=== PATIENT | female | born 1980 ===

== ENCOUNTER 2019-03-07 09:50 | Observation (INO) | payer BC ==
[2019-03-07] MEDS ORDERED: Sodium Chloride 0.9% 2.5 ML Syringe FLUSH PRN (10:18)
[2019-03-07] MEDS ORDERED: Sodium Chloride 0.9% 10 ML Syringe FLUSH PRN (10:18)
[2019-03-07] MEDS ORDERED: Terbutaline 1 MG/ML SDV SUBCUT ONE (10:22)
[2019-03-07] MEDS ORDERED: Phenylephrine/Normal Saline 100 MCG/ML 10 ML Syringe ONE (10:29)
[2019-03-07] MEDS ORDERED: fentaNYL 100 MCG/2 ML SDV ONE (10:31)
[2019-03-07] MEDS: Lactated Ringers 1,000 ML IV SCH ×2 (10:35→11:08)
--- NOTE | 2019-03-07 12:16 | PCM.PREANE ---
Preanesthetic Assessment - Anesthesia/Transfusion/Family Hx Anesthesia History: Prior Anesthesia Without Reaction Family History of Anesthesia Reaction: No - Physical Assessment NPO Status Date: 03/07/19 NPO Status Time: 00:05 Height: 1.63 m Weight: 97.522 kg ASA Class: 1 Mental Status: Alert & Oriented x3 Airway Class: Mallampati = 1 Dentition: Reports: Normal Dentition - Allergies Allergies/Adverse Reactions: Allergies Allergy/AdvReac Type Severity Reaction Status Date / Time No Known Allergies Allergy Verified 03/07/19 10:13 - Acknowledgements Anesthesia Type Planned: Epidural Pt an Appropriate Candidate for the Planned Anesthesia: Yes Alternatives and Risks of Anesthesia Discussed w Pt/Guardian: Yes Pt/Guardian Understands and Agrees with Anesthesia Plan: Yes PreAnesthesia Questionnaire - HOME MEDS Home Medications: Home Meds Docusate Sodium [Colace] 100 mg PO DAILY 03/07/19 [History] Omeprazole Magnesium [Prilosec] 10 mg PO DAILY 03/07/19 [History] - CURRENT (IN HOUSE) MEDS Current Meds: Current Medications Lactated Ringer's (Ringers, Lactated) 1,000 mls @ 500 mls/hr IV BOLUS MAMI Last Admin: 03/07/19 11:08 Dose: 500 mls/hr Sodium Chloride (Saline Flush) 10 ml FLUSH ASDIRECTED PRN PRN Reason: Keep Vein Open Sodium Chloride (Saline Flush) 2.5 ml FLUSH ASDIRECTED PRN PRN Reason: Keep Vein Open Discontinued Medications Fentanyl (Sublimaze) Confirm Administered Dose 100 mcg .ROUTE .STK-MED ONE Stop: 03/07/19 10:32 Phenylephrine HCl (Phenylephrine In Ns 100 Mcg/Ml) Confirm Administered Dose 3 mg .ROUTE .STK-MED ONE Stop: 03/07/19 10:30 Terbutaline Sulfate (Brethine) 0.25 mg SUBCUT ONETIME ONE Stop: 03/07/19 10:23 Last Admin: 03/07/19 11:44 Dose: 0.25 mg
--- NOTE | 2019-03-07 12:19 | PCM.PRNOTE ---
- Free Text/Narrative Note: Anes Note Plan epidural anesthesia for External Version. Sitting Position, level L2-L3 midline approach. Sterile technique, chloraprep scrub to lumbar area. Sterile fenestrated drape applied. Epidural space easily achieved single attempt wtih ease using DOLORES technique. DOLORES at 3 cm. Cath threaded 5 cme with ease. Secured at skin at 9 cm usin sterile clear adhesive dressing. 1048 Test 3cc 1.5% lido with epi negative. 1053 Load 16 cc 2% lidocaine with 2 cc fentanyl in slow divided doses. Prompt T6 level of anesthesia obtained. Shraddha well. Time with patient 1040 until I was [id number] by surgeon at 1210. Mars Palmer EQUIPMENT SERVICE ENGINEER
--- NOTE | 2019-03-07 12:26 | PCM.OPNOTE ---
- General Post-Op/Procedure Note Date of Surgery/Procedure: 03/07/19 Operative Procedure(s): external cephalic version Findings: Preop 37 weeks, ignacio breech presentation head RUQ FHT 115; postop Cephalic presentaiton (OP) FHT 115 Pre Op Diagnosis: 37 weeks breech presentation. Post-Op Diagnosis: Same Anesthesia Technique: Epidural Primary Surgeon: Margareth Patel Secondary Surgeon: Nguyen Pinzon Anesthesia Provider: Mars Palmer Pathology: none Fluid Replacement, Intraop: 2,000 Output, Urine Amount: 200 Complications: None Known Condition: Good
--- NOTE | 2019-03-07 13:29 | PCM.POSTAN ---
POST ANESTHESIA ASSESSMENT - MENTAL STATUS Mental Status: Alert - RESPIRATORY Respiratory Status: Respiratory Rate WNL - CARDIOVASCULAR CV Status: Pulse Rate WNL - GASTROINTESTINAL GI Status: No Symptoms - POST OP HYDRATION Hydration Status: Adequate & Stable
--- NOTE | 2019-03-07 14:09 | PCM48HPAN ---
Post Anesthesia Note - EVALUATION WITHIN 48HRS OF ANESTHETIC Vital Signs in Normal Range: Yes Patient Participated in Evaluation: Yes Respiratory Function Stable: Yes Airway Patent: Yes Cardiovascular Function Stable: Yes Hydration Status Stable: Yes Pain Control Satisfactory: Yes Nausea and Vomiting Control Satisfactory: Yes Mental Status Recovered: Yes
--- NOTE | 2019-03-07 14:48 | US ---
Limited obstetrical ultrasound: Multiple real-time images were obtained for position. presentation starts in breech and on final film fetus appears cephalic in presentation. Heart rate is 114 BPM Impression: Findings as noted above. Diagnostic code #1 This report was dictated in [place] Standard Time MTDD
--- NOTE | 2019-03-07 16:18 | OR ---
SURGEON: Margareth Patel M.D. DATE OF PROCEDURE: 03/07/2019 PREOPERATIVE DIAGNOSIS: A 37-week intrauterine , breech presentation. POSTOPERATIVE DIAGNOSIS: A 37-week intrauterine , breech presentation. PROCEDURE: External cephalic version. PRIMARY SURGEON: Margareth Patel M.D. CONTOUR PATH TAPE MILL OPERATOR: Nguyen Pinzon M.D. ANESTHESIA: Epidural. ESTIMATED BLOOD LOSS: None. FINDINGS: Preoperatively, fetus was ignacio breech presentation, head to the maternal right upper quadrant. Postoperatively, cephalic presentation, occiput posterior. COMPLICATIONS: None known. DISPOSITION: Reassuring heart tones. Mother remains in LDR for observation. BRIEF HISTORY: This is a 38-year-old female. She is multiparous. She presents at 37 weeks' gestation, ignacio breech presentation. She was offered and declines a scheduled section unless the version fails. She also understands that breech vaginal deliveries are not recommended at this point, and therefore, she requests to proceed with an external cephalic version with risks discussed including pain, rupture of membranes, onset of labor, distress requiring acute , and injury to the fetus. Understanding all these issues, she does desire to proceed. She received terbutaline 0.25 mg subcu. Epidural was placed after IV hydration, and she had good analgesia, an ultrasound was at bedside showing breech presentation, amniotic fluid index of 8 with a recent ultrasound showing growth at the 68th percentile. DESCRIPTION OF PROCEDURE: With the patient in the left tilt position and under adequate epidural analgesia, the breech was elevated from the pelvis and using a reverse roll technique, the head was brought down into the pelvis without significant difficulty. At this point, heart tones were checked and were in the 80s. The patient was rotated to the right tilt with heart tones remaining in the 80s and then to the left tilt position and heart tones recovered to the 115 to 120s with moderate variability, however, after relaxing from the positioning on the abdomen, the fetus returned to breech presentation. Attempt was then made to do a forward roll, rotating the head towards the maternal left and elevating the breech, but there was minimal movement, and therefore, the reverse roll was performed again with good results. The head was in the pelvis. It was noted that the maternal bladder was full, therefore, in a sterile fashion, the bladder was drained with approximately 200 mL being produced and heart tones were in the 115 to 120s and no further attempts at version will be performed as 2 successful attempts have been performed. We will continue to observe for breech versus cephalic presentation at future appointments. At this point, both mother and baby are in good condition with normal heart tones and stable vitals for the mother and we will continue to monitor for a minimum of 1 hour and/or until the mother is able to void spontaneously after the epidural is discontinued. PERRY STONE /[id number]
== END 2019-03-07 12:00 | disposition home or self-care (01) ==
LOC: MW.OB 09:50
PROVIDERS: ADMIT Obstetrics & Gynecology; ATTEND Obstetrics & Gynecology
DX: O32.1XX0 Maternal care for breech presentation, not applicable or unspecified (principal); Z3A.37 37 weeks gestation of pregnancy
CPT/HCPCS: 59025; 59412; 76815; J3105; J7120; J2370

== ENCOUNTER 2019-03-19 00:08 | Inpatient (IN) | payer BC ==
[2019-03-19] MEDS ORDERED: hydrOXYzine Pamoate 25 MG Cap PO ONE (02:45)
[2019-03-19] MEDS ORDERED: Sodium Chloride 0.9% 2.5 ML Syringe FLUSH PRN (06:12)
[2019-03-19] MEDS ORDERED: Sodium Chloride 0.9% 10 ML SDV IV PRN (06:12)
[2019-03-19] MEDS ORDERED: Carboprost Tromethamine 250 MCG/1 ML Amp IM PRN (06:12)
[2019-03-19] MEDS ORDERED: Methylergonovine 0.2 MG/1 ML Amp IM PRN ×2 (06:12→18:37)
[2019-03-19] MEDS ORDERED: Water For Irrigation,Sterile 1,000 ML Container IRR PRN (06:12)
[2019-03-19] MEDS ORDERED: Nalbuphine 10 MG/1 ML Vial IVPUSH PRN (06:12)
[2019-03-19] MEDS ORDERED: Misoprostol 200 MCG Tab PO PRN (06:12)
[2019-03-19] MEDS ORDERED: Tranexamic Acid 1,000 MG in Sodium Chloride 0.9% 100 ML IV PRN (06:12)
[2019-03-19] MEDS ORDERED: Butorphanol 1 MG/ML SDV IVPUSH PRN (06:12)
[2019-03-19] MEDS ORDERED: Sodium Chloride 0.9% 10 ML Syringe FLUSH PRN (06:12)
[2019-03-19] MEDS ORDERED: Lidocaine 1% 50 ML MDV INJECT PRN (06:12)
[2019-03-19] MEDS ORDERED: Oxytocin/0.9 % Sodium Chloride 30 UNIT/500 ML BAG IV SCH ×2 (06:15→08:15)
[2019-03-19] MEDS ORDERED: Terbutaline 1 MG/ML SDV SUBCUT PRN (08:09)
[2019-03-19] MEDS ORDERED: Ampicillin 2 GM in Sodium Chloride 0.9% 100 ML IV ONE (08:30)
[2019-03-19] MEDS: Lactated Ringers 1,000 ML IV SCH ×2 (08:39→12:53)
[2019-03-19] MEDS: Ampicillin 1 GM in Sodium Chloride 0.9% 50 ML IV SCH ×2 (12:40→16:41)
[2019-03-19] MEDS ORDERED: fentaNYL 100 MCG/2 ML SDV ONE (13:24)
[2019-03-19] MEDS ORDERED: Ropivacaine HCl/PF 100 ML ONE (13:24)
--- NOTE | 2019-03-19 13:44 | PCM.PREANE ---
Preanesthetic Assessment - Anesthesia/Transfusion/Family Hx Anesthesia History: Prior Anesthesia Without Reaction Family History of Anesthesia Reaction: No Transfusion History: No Prior Transfusion(s) - Physical Assessment NPO Status Date: 03/19/19 NPO Status Time: 12:00 Height: 1.63 m Weight: 98.43 kg ASA Class: 1 - Lab Values: Laboratory Last Values WBC 11.00 K/uL (4.0-11.0) 03/19/19 06:33 RBC 4.66 M/uL (4.30-5.90) 03/19/19 06:33 Hgb 12.5 g/dL (12.0-16.0) 03/19/19 06:33 Hct 37.5 % (36.0-46.0) 03/19/19 06:33 MCV 80.5 fL (80.0-98.0) 03/19/19 06:33 MCH 26.8 pg (27.0-32.0) L 03/19/19 06:33 MCHC 33.3 g/dL (31.0-37.0) 03/19/19 06:33 RDW Std Deviation 41.5 fl (28.0-62.0) 03/19/19 06:33 RDW Coeff of Carlos Eduardo 14 % (11.0-15.0) 03/19/19 06:33 Plt Count 280 K/uL (150-400) 03/19/19 06:33 MPV 9.70 fL (7.40-12.00) 03/19/19 06:33 Nucleated RBC % 0.0 /100WBC 03/19/19 06:33 Nucleated RBCs # 0 K/uL 03/19/19 06:33 Membrane Rupture NEGATIVE 03/19/19 05:52 Blood Type A POSITIVE 03/19/19 06:33 Antibody Screen NEGATIVE 03/19/19 06:33 - Allergies Allergies/Adverse Reactions: Allergies Allergy/AdvReac Type Severity Reaction Status Date / Time No Known Allergies Allergy Verified 03/07/19 10:13 - Acknowledgements Anesthesia Type Planned: Epidural Pt an Appropriate Candidate for the Planned Anesthesia: Yes Alternatives and Risks of Anesthesia Discussed w Pt/Guardian: Yes Pt/Guardian Understands and Agrees with Anesthesia Plan: Yes PreAnesthesia Questionnaire CALL CIRCUIT WORKER History: Reports: - Past Surgical History HEENT Surgical History: Reports: Other (See Below) Other HEENT Surgeries/Procedures: Cedar teeth GI Surgical History: Reports: Cholecystectomy - SUBSTANCE USE Smoking Status *Q: Never Smoker Second Hand Smoke Exposure: No Recreational Drug Use History: No - HOME MEDS Home Medications: Home Meds Docusate Sodium [Colace] 100 mg PO DAILY 03/07/19 [History] Omeprazole Magnesium [Prilosec] 10 mg PO DAILY 03/07/19 [History] - CURRENT (IN HOUSE) MEDS Current Meds: Current Medications Butorphanol Tartrate (Stadol) 1 mg IVPUSH Q1H PRN PRN Reason: Pain Carboprost Tromethamine (Hemabate Ds) 250 mcg IM ASDIRECTED PRN PRN Reason: Post Hemorrhage Tranexamic Acid 1,000 mg/ (Sodium Chloride) 110 mls @ 660 mls/hr IV ONETIME PRN PRN Reason: Bleeding Lactated Ringer's (Ringers, Lactated) 1,000 mls @ 150 mls/hr IV ASDIRECTED MAMI Last Admin: 03/19/19 12:53 Dose: 999 mls/hr Oxytocin/Sodium Chloride (Oxytocin 30 Unit/500 Ml-Ns) 30 unit in 500 mls @ 999 mls/hr IV TITRATE MAMI Ampicillin Sodium 1 gm/ Sodium (Chloride) 50 mls @ 100 mls/hr IV Q4H MAMI Last Admin: 03/19/19 12:40 Dose: 100 mls/hr Oxytocin/Sodium Chloride (Oxytocin 30 Unit/500 Ml-Ns) 30 unit in 500 mls @ 2 mls/hr IV TITRATE MAMI; Protocol Last Titration: 03/19/19 13:37 Dose: 10 munits/min, 10 mls/hr Lidocaine HCl (Xylocaine 1%) 50 ml INJECT ONETIME PRN PRN Reason: Laceration repair Methylergonovine Maleate (Methergine) 0.2 mg IM ASDIRECTED PRN PRN Reason: Post Hemorrhage Misoprostol (Cytotec) 200 mcg PO ONETIME PRN PRN Reason: Post Hemorrhage Nalbuphine HCl (Nubain) 10 mg IVPUSH Q1H PRN PRN Reason: Pain (severe 7-10) Sodium Chloride (Saline Flush) 10 ml FLUSH ASDIRECTED PRN PRN Reason: Keep Vein Open Sodium Chloride (Saline Flush) 2.5 ml FLUSH ASDIRECTED PRN PRN Reason: Keep Vein Open Sodium Chloride (Normal Saline) 10 ml IV ASDIRECTED PRN PRN Reason: IV Use Sterile Water (Sterile Water For Irrigation) 1,000 ml IRR ASDIRECTED PRN PRN Reason: delivery Terbutaline Sulfate (Brethine) 0.25 mg SUBCUT ASDIRECTED PRN PRN Reason: Tacysystole Discontinued Medications Fentanyl (Sublimaze) Confirm Administered Dose 100 mcg .ROUTE .STK-MED ONE Stop: 03/19/19 13:25 Hydroxyzine Pamoate (Vistaril) 50 mg PO ONETIME ONE Stop: 03/19/19 02:46 Last Admin: 03/19/19 03:10 Dose: 50 mg Ampicillin Sodium 2 gm/ Sodium (Chloride) 100 mls @ 200 mls/hr IV ONETIME ONE Stop: 03/19/19 08:59 Last Admin: 03/19/19 08:40 Dose: 200 mls/hr Ropivacaine (Naropin 0.2%) Confirm Administered Dose 100 mls @ as directed .ROUTE .STK-MED ONE Stop: 03/19/19 13:25
--- NOTE | 2019-03-19 13:47 | PCM.PRNOTE ---
- Free Text/Narrative Note: Anesthesia Note Patient requests epidural for L&D. Sitting position, level L3-L4 midline approach. Sterile technique. Chloraprep scrub to lumbar area. Sterile fenestrated drape applied. Epidural space easily achieved single attempt with ease using DOLORES tecnique. DOLORES at 3 cm. Cath threaded 5 cm with ease. secured t skin at 10 cm using sterile clear adhesive dressing. 0131 test 3 cc 1.5% lido with epi negative. 0134 load 10 cc 0.2% ropivicaine with 1 mcg cc fentayl in slow divided doses. 0139 pump started wtih 90 cc same solution at 8 cc hr with 6 cc q 20 min prn bolus. Shraddha well. Time with patient [id number] Mars Palmer CLIENT ONBOARDING ANALYST
--- NOTE | 2019-03-19 18:36 | PCM.DEL ---
L & D Note - General Info Date of Service: 03/19/19 Mother's Due Date: 03/28/19 - Delivery Note Labor: Augmented by ARM, Augmented by Oxytocin Delivery Outcome: Livebirth Delivery Method: Spontaneous Vaginal Delivery-Single Presentation: Left Occiput Anterior (KENDELL) Nuchal Cord: None Prep: Other Anesthesia Type: Epidural Amniotic Fluid Description: Clear Episiotomy Type: None Laceration: 2nd Degree Suture type: Vicryl Suture size: 3-0 Placenta: Intact, Spontaneous Cord: 3 Vessels Resuscitation Needed: No [place]: Suctioned Score 1 min: 6 Score 5 min: 9 Delivery Comments (Free Text/Narrative):: Liveborn female 09/05 weight 3790 grams. - General Info Date of Service: 03/19/19 - Patient Data Weight - Most Recent: 98.43 kg Lab Results Last 24 Hours: Laboratory Results - last 24 hr 03/19/19 03/19/19 03/19/19 Range/Units 05:52 06:33 06:33 WBC 11.00 (4.0-11.0) K/uL RBC 4.66 (4.30-5.90) M/uL Hgb 12.5 (12.0-16.0) g/dL Hct 37.5 (36.0-46.0) % MCV 80.5 (80.0-98.0) fL MCH 26.8 L (27.0-32.0) pg MCHC 33.3 (31.0-37.0) g/dL RDW Std Deviation 41.5 (28.0-62.0) fl RDW Coeff of Carlos Eduardo 14 (11.0-15.0) % Plt Count 280 (150-400) K/uL MPV 9.70 (7.40-12.00) fL Nucleated RBC % 0.0 /100WBC Nucleated RBCs # 0 K/uL Membrane Rupture NEGATIVE Blood Type A POSITIVE Antibody Screen NEGATIVE Med Orders - Current: Current Medications Butorphanol Tartrate (Stadol) 1 mg IVPUSH Q1H PRN PRN Reason: Pain Carboprost Tromethamine (Hemabate Ds) 250 mcg IM ASDIRECTED PRN PRN Reason: Post Hemorrhage Tranexamic Acid 1,000 mg/ (Sodium Chloride) 110 mls @ 660 mls/hr IV ONETIME PRN PRN Reason: Bleeding Lactated Ringer's (Ringers, Lactated) 1,000 mls @ 150 mls/hr IV ASDIRECTED MAMI Last Admin: 03/19/19 12:53 Dose: 999 mls/hr Oxytocin/Sodium Chloride (Oxytocin 30 Unit/500 Ml-Ns) 30 unit in 500 mls @ 999 mls/hr IV TITRATE MAMI Ampicillin Sodium 1 gm/ Sodium (Chloride) 50 mls @ 100 mls/hr IV Q4H MAMI Last Admin: 03/19/19 16:41 Dose: 100 mls/hr Oxytocin/Sodium Chloride (Oxytocin 30 Unit/500 Ml-Ns) 30 unit in 500 mls @ 2 mls/hr IV TITRATE MAMI; Protocol Last Titration: 03/19/19 14:56 Dose: 14 munits/min, 14 mls/hr Lidocaine HCl (Xylocaine 1%) 50 ml INJECT ONETIME PRN PRN Reason: Laceration repair Methylergonovine Maleate (Methergine) 0.2 mg IM ASDIRECTED PRN PRN Reason: Post Hemorrhage Misoprostol (Cytotec) 200 mcg PO ONETIME PRN PRN Reason: Post Hemorrhage Nalbuphine HCl (Nubain) 10 mg IVPUSH Q1H PRN PRN Reason: Pain (severe 7-10) Sodium Chloride (Saline Flush) 10 ml FLUSH ASDIRECTED PRN PRN Reason: Keep Vein Open Sodium Chloride (Saline Flush) 2.5 ml FLUSH ASDIRECTED PRN PRN Reason: Keep Vein Open Sodium Chloride (Normal Saline) 10 ml IV ASDIRECTED PRN PRN Reason: IV Use Sterile Water (Sterile Water For Irrigation) 1,000 ml IRR ASDIRECTED PRN PRN Reason: delivery Terbutaline Sulfate (Brethine) 0.25 mg SUBCUT ASDIRECTED PRN PRN Reason: Tacysystole Discontinued Medications Fentanyl (Sublimaze) Confirm Administered Dose 100 mcg .ROUTE .STK-MED ONE Stop: 03/19/19 13:25 Hydroxyzine Pamoate (Vistaril) 50 mg PO ONETIME ONE Stop: 03/19/19 02:46 Last Admin: 03/19/19 03:10 Dose: 50 mg Ampicillin Sodium 2 gm/ Sodium (Chloride) 100 mls @ 200 mls/hr IV ONETIME ONE Stop: 03/19/19 08:59 Last Admin: 03/19/19 08:40 Dose: 200 mls/hr Ropivacaine (Naropin 0.2%) Confirm Administered Dose 100 mls @ as directed .ROUTE .STK-MED ONE Stop: 03/19/19 13:25 - Problem List & Annotations (1) Vaginal delivery SNOMED Code(s): 112680344 Code(s): O80 - ENCOUNTER FOR FULL-TERM UNCOMPLICATED DELIVERY Status: Acute Current Visit: Yes - Problem List Review Problem List Initiated/Reviewed/Updated: Yes - My Orders Last 24 Hours: My Active Orders 03/18/19 23:45 Patient Status [ADT] Routine Non Stress Test [RC] PER UNIT ROUTINE 03/19/19 00:14 Resuscitation Status Routine 03/19/19 00:15 Up ad Yaa [RC] ASDIRECTED Vaginal Exam [RC] Click to Edit Vital Signs [RC] PER UNIT ROUTINE 03/19/19 06:12 Patient Status [ADT] Routine Non Stress Test [RC] PER UNIT ROUTINE May Shower [RC] ASDIRECTED Notify Provider [RC] PRN Up ad Yaa [RC] ASDIRECTED Vaginal Exam [RC] PRN Vital Signs [RC] PER UNIT ROUTINE Butorphanol [Stadol] 1 mg IVPUSH Q1H PRN Carboprost Tromethamine [Hemabate DS] 250 mcg IM ASDIRECTED PRN Lidocaine 1% [Xylocaine 1%] 50 ml INJECT ONETIME PRN Methylergonovine [Methergine] 0.2 mg IM ASDIRECTED PRN Nalbuphine [Nubain] 10 mg IVPUSH Q1H PRN Sodium Chloride 0.9% [Normal Saline] 10 ml IV ASDIRECTED PRN Sodium Chloride 0.9% [Saline Flush] 10 ml FLUSH ASDIRECTED PRN Sodium Chloride 0.9% [Saline Flush] 2.5 ml FLUSH ASDIRECTED PRN Tranexamic Acid [Cyklokapron] 1,000 mg Sodium Chloride 0.9% [Normal Saline] 100 ml IV ONETIME Water For Irrigation,Sterile [Sterile Water for Irrigation] 1,000 ml IRR ASDIRECTED PRN miSOPROStoL [Cytotec] 200 mcg PO ONETIME PRN Scalp Electrode [WOMSER] Per Unit Routine Peripheral IV Insertion Adult [OM.PC] Routine 03/19/19 06:15 Lactated Ringers [Ringers, Lactated] 1,000 ml IV ASDIRECTED Oxytocin/0.9 % Sodium Chloride [Oxytocin 30 Unit/500 ML-NS] 30 unit in 500 ml IV TITRATE 03/19/19 06:33 RAPID PLASMA REAGIN, QUANT [REF] Routine 03/19/19 08:09 Communication Order [RC] ASDIRECTED Communication Order [RC] ASDIRECTED Notify Provider [RC] PRN Oxygen Therapy [RC] ASDIRECTED Vaginal Exam [RC] PRN Terbutaline [Brethine] 0.25 mg SUBCUT ASDIRECTED PRN 03/19/19 08:15 Oxytocin/0.9 % Sodium Chloride [Oxytocin 30 Unit/500 ML-NS] 30 unit in 500 ml IV TITRATE Medication Administration Instruction [OM.PC] Q3H 03/19/19 12:30 Ampicillin 1 gm Sodium Chloride 0.9% [Normal Saline] 50 ml IV Q4H 03/19/19 Breakfast Regular Diet [DIET]
[2019-03-19] MEDS ORDERED: Bisacodyl 10 MG Supp RECTAL PRN (18:37)
[2019-03-19] MEDS ORDERED: oxyCODONE 5 MG Tab PO PRN (18:37)
[2019-03-19] MEDS ORDERED: Benzocaine/Menthol 20%-0.5% Spray 78 GM Cannister TOP PRN (18:37)
[2019-03-19] MEDS ORDERED: Lanolin 100% Cream 7 GM Tube TOP PRN (18:37)
[2019-03-19] MEDS ORDERED: Acetaminophen 500 MG Tab PO PRN (18:37)
[2019-03-19] MEDS ORDERED: Ibuprofen 400 MG Tab PO PRN (18:37)
[2019-03-19] MEDS ORDERED: Oxytocin/0.9 % Sodium Chloride 30 UNIT/500 ML BAG ONE (18:50)
--- NOTE | 2019-03-19 19:32 | OR ---
SURGEON: Margareth Patel M.D. DATE OF PROCEDURE: 03/19/2019 PREOPERATIVE DIAGNOSES: 1. A 38-5/7 week intrauterine . 2. Protracted spontaneous labor. 3. Group B streptococcus positive. POSTOPERATIVE DIAGNOSES: 1. A 38-5/7 week intrauterine . 2. Protracted spontaneous labor. 3. Group B streptococcus positive. PROCEDURE: 1. Pitocin augmentation of labor. 2. Term spontaneous vaginal delivery. 3. Repair of second-degree laceration. 4. Group B streptococcus prophylaxis. PRIMARY SURGEON: Margareth Patel M.D. ANESTHESIA: Epidural. ESTIMATED BLOOD LOSS: Less than 300 mL. FINDINGS: Liveborn female. scores 6 and 9. Weight of 3790 g. Placenta spontaneous. Schultze intact with 3 vessels. A second-degree perineal laceration was repaired. There were no periurethral, vaginal sidewall, cervical, or rectal lacerations. ESTIMATED BLOOD LOSS: Less than 300 mL. COMPLICATIONS: None known. DISPOSITION: Mother and baby are in LDRP in good condition. BRIEF HISTORY: This is a 38-year-old female, G3, P2, who presents at 38-5/7 weeks' gestation with first of all thinking that she had ruptured, but also with irregular contractions initially every 4 to 5 minutes, then increased every 2 to 3 minutes. She did change her cervix. [place]. She is group B strep positive, and therefore the decision was made to proceed with ampicillin for group B strep prophylaxis while evaluating for labor. She did progress further. However, Pitocin augmentation was required and she continued to have category 1 heart tones. She received an epidural for pain control. When she was 2 to 3 cm dilated, she had artificial rupture of membranes performed with clear fluid noted. She continued to progress to complete. DESCRIPTION OF PROCEDURE: With the patient in dorsal lithotomy position, under adequate epidural analgesia, the patient pushed over a 15-minute time period to a 5+ station, at which time the head was delivered spontaneously and atraumatically over the perineum with support with subsequent delivery of the 's shoulders and body without any difficulty. The was bulb suctioned by nose and mouth, and the was handed to the mother in the presence of the nurse attending delivery. The is a liveborn female, scores 6 and 9. Weight of 3790 g. After the cord had ceased to pulsate, it was doubly clamped and cut. Cord blood was collected for cord ABGs as well as routine cord blood sampling. Pitocin was initiated after delivery of the to assist with delivery of the placenta, which was delivered spontaneously. Ishtze was intact with 3 vessels. Upon inspection of the pelvis and perineum, there were no periurethral, vaginal sidewall, cervical, or rectal lacerations. There was a second-degree perineal laceration at the site of prior repair. This was repaired using a running locked suture of 3-0 Vicryl for the vaginal mucosa, deep running suture on the perineum using also 3-0 Vicryl, and a subcuticular suture using a 3-0 Vicryl for the skin. Final sponge, needle, and instrument counts were correct. There were no complications. Mother and baby are in LDRP in good condition. PERRY STONE /[id number]
[2019-03-19] MEDS: Witch Hazel Medicated Pads 40/Jar TOP PRN (21:20)
[2019-03-19] MEDS: Ibuprofen 800 MG Tab PO PRN (21:23)
[2019-03-20] MEDS: Ibuprofen 800 MG Tab PO PRN ×3 (04:01→18:33)
[2019-03-20] MEDS ORDERED: Bupivacaine 0.25% 10 ML SDV ONE (07:32)
[2019-03-20] MEDS ORDERED: Ropivacaine HCl/PF 100 ML ONE (07:51)
[2019-03-20] MEDS ORDERED: fentaNYL 100 MCG/2 ML SDV ONE (07:51)
--- NOTE | 2019-03-20 08:04 | PCM.PRNOTE ---
- Free Text/Narrative Note: Anes Note Patient reports very good analgesia in mid abdomen, however, she is not comfortable in the perineal area. I had redosed this epidural several hours ago, with limited success in reducing the perineal discomfort. I have discussed this situation with this patient, and have recommended replacing the epidural catheter with a new one. She understnads this and wishes to proceed. Exisiting epidural catheter was removed easily. Chloraprep scrub to lumbar area. A new epidural catheter was placed at L3-L4 under sterile technique. Using Brian technique, the epidural spaces was achieved at 5 cm. Epidural cath was threaded 6 cm with ease, and secured with a sterile clear adhesive dressing. 0740 Test 3 cc 1.5% lido with epi negative. 0743 load 10 cc 0.25% bupivicaine in slow incremental doses. 0747 A new epidural bag was placed. This infusion consists of 100 cc 0.2% ropivicaine with 1 mcg cc fentanyl. Time with patient [id number] Mars Palmer CRNA
--- NOTE | 2019-03-20 08:18 | PCM.PNPP ---
- General Info Date of Service: 03/20/19 Functional Status: Reports: Pain Controlled (using ibuprofen), Tolerating Diet, Ambulating, Urinating - Review of Systems General: Reports: No Symptoms HEENT: Reports: No Symptoms Pulmonary: Reports: No Symptoms Cardiovascular: Reports: No Symptoms Gastrointestinal: Reports: No Symptoms Genitourinary: Reports: No Symptoms Musculoskeletal: Reports: No Symptoms Skin: Reports: No Symptoms Neurological: Reports: No Symptoms Psychiatric: Reports: No Symptoms - General Info Date of Service: 03/20/19 - Patient Data Vital Signs - Most Recent: Last Vital Signs Temp 36.4 C 03/20/19 04:30 Pulse 60 03/20/19 05:05 Resp 17 03/20/19 05:05 BP 82/45 L 03/20/19 05:05 Pulse Ox 95 03/20/19 05:05 Weight - Most Recent: 98.43 kg Lab Results - Last 24 Hours: Laboratory Results - last 24 hr 03/19/19 03/20/19 Range/Units 18:12 06:00 Hgb 10.4 L (12.0-16.0) g/dL Hct 31.9 L (36.0-46.0) % Cord ABG pH 7.261 (7.18-7.38) Cord ABG Base Excess -4 (-10--2) Cord VBG pH 7.358 (7.25-7.45) Cord VBG Base Excess -2 (-10--2) Med Orders - Current: Current Medications Acetaminophen (Tylenol Extra Strength) 500 mg PO Q4H PRN PRN Reason: Pain Acetaminophen (Tylenol Extra Strength) 1,000 mg PO Q4H PRN PRN Reason: Pain Benzocaine/Menthol (Dermoplast Pain Relief 20%-0.5% [place]) 78 gm TOP ASDIRECTED PRN PRN Reason: Perineal Comfort Measure Last Admin: 03/19/19 21:21 Dose: 1 can Bisacodyl (Dulcolax) 10 mg RECTAL ONETIME PRN PRN Reason: Constipation Docusate Sodium (Colace) 100 mg PO BID PRN PRN Reason: Constipation Emollient Ointment (Lansinoh Hpa) 0 gm TOP ASDIRECTED PRN PRN Reason: Sore Nipples Last Admin: 03/19/19 21:18 Dose: 7 gram Ibuprofen (Motrin) 400 mg PO Q4H PRN PRN Reason: Pain Ibuprofen (Motrin) 800 mg PO Q6H PRN PRN Reason: Pain Last Admin: 03/20/19 04:01 Dose: 800 mg Methylergonovine Maleate (Methergine) 0.2 mg IM ONETIME PRN PRN Reason: Excessive Vaginal Bleeding Oxycodone HCl (Oxycodone) 5 mg PO Q2H PRN PRN Reason: Pain Witch Stephanie (Tucks) 1 pad TOP ASDIRECTED PRN PRN Reason: comfort care Last Admin: 03/19/19 21:20 Dose: 1 tub Discontinued Medications Bupivacaine HCl (Sensorcaine-Mpf 0.25%) Confirm Administered Dose 10 ml .ROUTE .STK-MED ONE Stop: 03/20/19 07:33 Butorphanol Tartrate (Stadol) 1 mg IVPUSH Q1H PRN PRN Reason: Pain Carboprost Tromethamine (Hemabate Ds) 250 mcg IM ASDIRECTED PRN PRN Reason: Post Hemorrhage Fentanyl (Sublimaze) Confirm Administered Dose 100 mcg .ROUTE .STK-MED ONE Stop: 03/19/19 13:25 Fentanyl (Sublimaze) Confirm Administered Dose 100 mcg .ROUTE .STK-MED ONE Stop: 03/20/19 07:52 Hydroxyzine Pamoate (Vistaril) 50 mg PO ONETIME ONE Stop: 03/19/19 02:46 Last Admin: 03/19/19 03:10 Dose: 50 mg Tranexamic Acid 1,000 mg/ (Sodium Chloride) 110 mls @ 660 mls/hr IV ONETIME PRN PRN Reason: Bleeding Lactated Ringer's (Ringers, Lactated) 1,000 mls @ 150 mls/hr IV ASDIRECTED MAMI Last Admin: 03/19/19 12:53 Dose: 999 mls/hr Oxytocin/Sodium Chloride (Oxytocin 30 Unit/500 Ml-Ns) 30 unit in 500 mls @ 999 mls/hr IV TITRATE [facility] Ampicillin Sodium 2 gm/ Sodium (Chloride) 100 mls @ 200 mls/hr IV ONETIME ONE Stop: 03/19/19 08:59 Last Admin: 03/19/19 08:40 Dose: 200 mls/hr Ampicillin Sodium 1 gm/ Sodium (Chloride) 50 mls @ 100 mls/hr IV Q4H MAMI Last Admin: 03/19/19 16:41 Dose: 100 mls/hr Oxytocin/Sodium Chloride (Oxytocin 30 Unit/500 Ml-Ns) 30 unit in 500 mls @ 2 mls/hr IV TITRATE MAMI; Protocol Last Titration: 03/19/19 14:56 Dose: 14 munits/min, 14 mls/hr Ropivacaine (Naropin 0.2%) Confirm Administered Dose 100 mls @ as directed .ROUTE .STK-MED ONE Stop: 03/19/19 13:25 Oxytocin/Sodium Chloride (Oxytocin 30 Unit/500 Ml-Ns) Confirm Administered Dose 30 unit in 500 mls @ as directed .ROUTE .STK-MED ONE Stop: 03/19/19 18:51 Ropivacaine (Naropin 0.2%) Confirm Administered Dose 100 mls @ as directed .ROUTE .STK-MED ONE Stop: 03/20/19 07:52 Lidocaine HCl (Xylocaine 1%) 50 ml INJECT ONETIME PRN PRN Reason: Laceration repair Methylergonovine Maleate (Methergine) 0.2 mg IM ASDIRECTED PRN PRN Reason: Post Hemorrhage Misoprostol (Cytotec) 200 mcg PO ONETIME PRN PRN Reason: Post Hemorrhage Nalbuphine HCl (Nubain) 10 mg IVPUSH Q1H PRN PRN Reason: Pain (severe 7-10) Sodium Chloride (Saline Flush) 10 ml FLUSH ASDIRECTED PRN PRN Reason: Keep Vein Open Sodium Chloride (Saline Flush) 2.5 ml FLUSH ASDIRECTED PRN PRN Reason: Keep Vein Open Sodium Chloride (Normal Saline) 10 ml IV ASDIRECTED PRN PRN Reason: IV Use Sterile Water (Sterile Water For Irrigation) 1,000 ml IRR ASDIRECTED PRN PRN Reason: delivery Terbutaline Sulfate (Brethine) 0.25 mg SUBCUT ASDIRECTED PRN PRN Reason: Tacysystole - Interaction Disposition, : in Room with Family Interaction: Holding Infant Infant Feeding: Breastfed Infant; Nursed Well Support Person: - Recovery Exam Fundal Tone: Firm Fundal Level: At Umbilicus Fundal Placement: Midline Lochia Amount: Scant, Small Lochia Color: Rubra/Red Perineum Description: Other (see below) Other Perinuem Description: 2nd degree laceration Episiotomy/Laceration: Approximated Bladder Status: Voiding Urinary Elimination: Voided - Exam General: Alert, Oriented HEENT: Pupils Equal Neck: Supple Lungs: Normal Respiratory Effort GI/Abdominal Exam: Soft, Non-Tender, No Distention Extremities: Normal Inspection, Non-Tender, No Pedal Edema Skin: Warm, Dry, Intact Neurological: No New Focal Deficit Psy/Mental Status: Alert, Normal Affect, Normal Mood - Problem List & Annotations (1) Vaginal delivery SNOMED Code(s): 918577209 Code(s): O80 - ENCOUNTER FOR FULL-TERM UNCOMPLICATED DELIVERY Status: Acute Current Visit: Yes - Problem List Review Problem List Initiated/Reviewed/Updated: Yes - My Orders Last 24 Hours: My Active Orders 03/19/19 08:09 Oxygen Therapy [RC] ASDIRECTED Vaginal Exam [RC] PRN 03/19/19 18:37 Patient Status [ADT] Routine May Shower [RC] ASDIRECTED Up ad Yaa [RC] ASDIRECTED Vital Signs [RC] PER UNIT ROUTINE Acetaminophen [Tylenol Extra Strength] 1,000 mg PO Q4H PRN Acetaminophen [Tylenol Extra Strength] 500 mg PO Q4H PRN Benzocaine/Menthol [Dermoplast Pain Relief 20%-0.5% [place]] 78 gm TOP ASDIRECTED PRN Docusate Sodium [Colace] 100 mg PO BID PRN Ibuprofen [Motrin] 400 mg PO Q4H PRN Ibuprofen [Motrin] 800 mg PO Q6H PRN Lanolin [Lansinoh HPA] See Dose Instructions TOP ASDIRECTED PRN Methylergonovine [Methergine] 0.2 mg IM ONETIME PRN Witch Stephanie [Tucks] 1 pad TOP ASDIRECTED PRN bisacodyL [Dulcolax] 10 mg RECTAL ONETIME PRN oxyCODONE 5 mg PO Q2H PRN Assess Lochia [WOMSER] Per Unit Routine Assess Uterine Involution [WOMSER] Per Unit Routine Peripheral IV Discontinue [OM.PC] Routine Resuscitation Status Routine 03/19/19 18:38 Perineal Care [OM.PC] Per Unit Routine 03/20/19 07:02 Ready for Discharge [RC] PER UNIT ROUTINE - Assessment Assessment:: PPD#1 after , stable minimal lochia, tolerating diet. Some cramping. She anticipates going home when 24 hour . - Plan Plan:: Discharge instructions reviewed, continue care.
[2019-03-20] MEDS: Acetaminophen 500 MG Tab PO PRN ×3 (08:20→21:02)
[2019-03-20] MEDS: Docusate Sodium 100 MG Cap PO PRN ×2 (08:29→21:01)
--- NOTE | 2019-03-20 09:51 | PCM48HPAN ---
Post Anesthesia Note - EVALUATION WITHIN 48HRS OF ANESTHETIC Vital Signs in Normal Range: Yes Patient Participated in Evaluation: Yes Respiratory Function Stable: Yes Airway Patent: Yes Cardiovascular Function Stable: Yes Hydration Status Stable: Yes Pain Control Satisfactory: Yes Nausea and Vomiting Control Satisfactory: Yes Mental Status Recovered: Yes Vital Signs: Last Vital Signs Temp 36.4 C 03/20/19 04:30 Pulse 60 03/20/19 05:05 Resp 17 03/20/19 05:05 BP 82/45 L 03/20/19 05:05 Pulse Ox 95 03/20/19 05:05
[2019-03-21] MEDS: Ibuprofen 800 MG Tab PO PRN ×2 (00:27→09:01)
[2019-03-21] MEDS: Witch Hazel Medicated Pads 40/Jar TOP PRN (00:27)
--- NOTE | 2019-03-21 05:57 | PCM.PNPP ---
- General Info Date of Service: 03/21/19 Functional Status: Reports: Pain Controlled, Tolerating Diet, Ambulating, Urinating - Review of Systems General: Reports: No Symptoms HEENT: Reports: No Symptoms Pulmonary: Reports: No Symptoms Cardiovascular: Reports: No Symptoms Gastrointestinal: Reports: No Symptoms Genitourinary: Reports: No Symptoms Musculoskeletal: Reports: No Symptoms Skin: Reports: No Symptoms Neurological: Reports: No Symptoms Psychiatric: Reports: No Symptoms - General Info Date of Service: 03/21/19 - Patient Data Vital Signs - Most Recent: Last Vital Signs Temp 36.2 C 03/21/19 04:15 Pulse 67 03/21/19 04:15 Resp 16 03/21/19 04:15 BP 97/64 03/21/19 04:15 Pulse Ox 99 03/21/19 04:15 Weight - Most Recent: 98.43 kg Lab Results - Last 24 Hours: Laboratory Results - last 24 hr 03/20/19 Range/Units 06:00 Hgb 10.4 L (12.0-16.0) g/dL Hct 31.9 L (36.0-46.0) % Med Orders - Current: Current Medications Acetaminophen (Tylenol Extra Strength) 500 mg PO Q4H PRN PRN Reason: Pain Acetaminophen (Tylenol Extra Strength) 1,000 mg PO Q4H PRN PRN Reason: Pain Last Admin: 03/20/19 21:02 Dose: 1,000 mg Benzocaine/Menthol (Dermoplast Pain Relief 20%-0.5% [place]) 78 gm TOP ASDIRECTED PRN PRN Reason: Perineal Comfort Measure Last Admin: 03/19/19 21:21 Dose: 1 can Bisacodyl (Dulcolax) 10 mg RECTAL ONETIME PRN PRN Reason: Constipation Docusate Sodium (Colace) 100 mg PO BID PRN PRN Reason: Constipation Last Admin: 03/20/19 21:01 Dose: 100 mg Emollient Ointment (Lansinoh Hpa) 0 gm TOP ASDIRECTED PRN PRN Reason: Sore Nipples Last Admin: 03/19/19 21:18 Dose: 7 gram Ibuprofen (Motrin) 400 mg PO Q4H PRN PRN Reason: Pain Ibuprofen (Motrin) 800 mg PO Q6H PRN PRN Reason: Pain Last Admin: 03/21/19 00:27 Dose: 800 mg Methylergonovine Maleate (Methergine) 0.2 mg IM ONETIME PRN PRN Reason: Excessive Vaginal Bleeding Oxycodone HCl (Oxycodone) 5 mg PO Q2H PRN PRN Reason: Pain Witch Stephanie (Tucks) 1 pad TOP ASDIRECTED PRN PRN Reason: comfort care Last Admin: 03/21/19 00:27 Dose: 1 tub Discontinued Medications Bupivacaine HCl (Sensorcaine-Mpf 0.25%) Confirm Administered Dose 10 ml .ROUTE .STK-MED ONE Stop: 03/20/19 07:33 Last Admin: 03/20/19 21:51 Dose: Not Given Butorphanol Tartrate (Stadol) 1 mg IVPUSH Q1H PRN PRN Reason: Pain Carboprost Tromethamine (Hemabate Ds) 250 mcg IM ASDIRECTED PRN PRN Reason: Post Hemorrhage Fentanyl (Sublimaze) Confirm Administered Dose 100 mcg .ROUTE .STK-MED ONE Stop: 03/19/19 13:25 Hydroxyzine Pamoate (Vistaril) 50 mg PO ONETIME ONE Stop: 03/19/19 02:46 Last Admin: 03/19/19 03:10 Dose: 50 mg Tranexamic Acid 1,000 mg/ (Sodium Chloride) 110 mls @ 660 mls/hr IV ONETIME PRN PRN Reason: Bleeding Lactated Ringer's (Ringers, Lactated) 1,000 mls @ 150 mls/hr IV ASDIRECTED MAMI Last Admin: 03/19/19 12:53 Dose: 999 mls/hr Oxytocin/Sodium Chloride (Oxytocin 30 Unit/500 Ml-Ns) 30 unit in 500 mls @ 999 mls/hr IV TITRATE MAMI Ampicillin Sodium 2 gm/ Sodium (Chloride) 100 mls @ 200 mls/hr IV ONETIME ONE Stop: 03/19/19 08:59 Last Admin: 03/19/19 08:40 Dose: 200 mls/hr Ampicillin Sodium 1 gm/ Sodium (Chloride) 50 mls @ 100 mls/hr IV Q4H MAMI Last Admin: 03/19/19 16:41 Dose: 100 mls/hr Oxytocin/Sodium Chloride (Oxytocin 30 Unit/500 Ml-Ns) 30 unit in 500 mls @ 2 mls/hr IV TITRATE MAMI; Protocol Last Titration: 03/19/19 14:56 Dose: 14 munits/min, 14 mls/hr Ropivacaine (Naropin 0.2%) Confirm Administered Dose 100 mls @ as directed .ROUTE .STK-MED ONE Stop: 03/19/19 13:25 Oxytocin/Sodium Chloride (Oxytocin 30 Unit/500 Ml-Ns) Confirm Administered Dose 30 unit in 500 mls @ as directed .ROUTE .STK-MED ONE Stop: 03/19/19 18:51 Lidocaine HCl (Xylocaine 1%) 50 ml INJECT ONETIME PRN PRN Reason: Laceration repair Methylergonovine Maleate (Methergine) 0.2 mg IM ASDIRECTED PRN PRN Reason: Post Hemorrhage Misoprostol (Cytotec) 200 mcg PO ONETIME PRN PRN Reason: Post Hemorrhage Nalbuphine HCl (Nubain) 10 mg IVPUSH Q1H PRN PRN Reason: Pain (severe 7-10) Sodium Chloride (Saline Flush) 10 ml FLUSH ASDIRECTED PRN PRN Reason: Keep Vein Open Sodium Chloride (Saline Flush) 2.5 ml FLUSH ASDIRECTED PRN PRN Reason: Keep Vein Open Sodium Chloride (Normal Saline) 10 ml IV ASDIRECTED PRN PRN Reason: IV Use Sterile Water (Sterile Water For Irrigation) 1,000 ml IRR ASDIRECTED PRN PRN Reason: delivery Terbutaline Sulfate (Brethine) 0.25 mg SUBCUT ASDIRECTED PRN PRN Reason: Tacysystole - Interaction Infant Disposition, : [place] in Room with Family Infant Interaction: Holding Infant Feeding: Breastfed ; Nursed Well Support Person: - Recovery Exam Fundal Tone: Firm Fundal Level: 1 Fingerbreadths Below Umbilicus Fundal Placement: Midline Lochia Amount: Scant Lochia Color: Rubra/Red Perineum Description: Other (see below) Other Perinuem Description: 2nd degree laceration Episiotomy/Laceration: Approximated Bladder Status: Voiding Urinary Elimination: Voided - Exam General: Alert, Oriented - Problem List & Annotations (1) Vaginal delivery SNOMED Code(s): 135553004 Code(s): O80 - ENCOUNTER FOR FULL-TERM UNCOMPLICATED DELIVERY Status: Acute Current Visit: Yes - Problem List Review Problem List Initiated/Reviewed/Updated: Yes - My Orders Last 24 Hours: My Active Orders 03/20/19 07:02 Ready for Discharge [RC] PER UNIT ROUTINE 03/21/19 05:52 Ready for Discharge [RC] PER UNIT ROUTINE - Assessment Assessment:: PPD#2 after , stable minimal lochia, tolerating diet. Dismiss to home today. - Plan Plan:: Dismiss to home today.
[2019-03-21] MEDS: Acetaminophen 500 MG Tab PO PRN (13:47)
== END 2019-03-21 14:20 | disposition home or self-care (01) | DRG 560 ==
LOC: MW.OBCHECK 00:08 → MW.OB 00:10 → MW.OBCHECK 06:12 → OBSVTOIN 18:37 → MW.OB 21:58
PROVIDERS: ADMIT Obstetrics & Gynecology; ATTEND Obstetrics & Gynecology
PROC: 10E0XZZ Delivery of Products of Conception, External Approach (ICD-10-PCS; principal; 2019-03-19)
PROC: 10907ZC Drainage of Amniotic Fluid, Therapeutic from Products of Conception, Via Natural or Artificial Opening (ICD-10-PCS; 2019-03-19)
PROC: 3E033VJ Introduction of Other Hormone into Peripheral Vein, Percutaneous Approach (ICD-10-PCS; 2019-03-19)
PROC: 0KQM0ZZ Repair Perineum Muscle, Open Approach (ICD-10-PCS; 2019-03-19)
PROC: 3E0R3BZ Introduction of Anesthetic Agent into Spinal Canal, Percutaneous Approach (ICD-10-PCS; 2019-03-19)
PROC: 00HU33Z Insertion of Infusion Device into Spinal Canal, Percutaneous Approach (ICD-10-PCS; 2019-03-19)
DX: O99.824 Streptococcus B carrier state complicating childbirth (principal); Z37.0 Single live birth; O70.1 Second degree perineal laceration during delivery; Z3A.38 38 weeks gestation of pregnancy
CPT/HCPCS: 36415; 51702; 82803; 84112; 85014; 85018; 85027; 86593; 86850; 86900; 86901; A9270-GY; J0290; J2590; J7050; J7120